=== PATIENT | male | born 1955 | race Caucasian/White ===

== ENCOUNTER 2021-03-12 21:14 | Emergency (ER) | payer MEDICARE ==
[2021-03-12] MEDS ORDERED: ACETAMINOPHEN TAB 500 MG TAB PO STA (23:24)
[2021-03-12] MEDS ORDERED: IBUPROFEN 800 MG TAB PO STA (23:24)
[2021-03-12] MEDS ORDERED: amLODIPine 10 MG TAB PO STA (23:33)
[2021-03-12] MEDS ORDERED: LOSARTAN 25 MG TAB PO STA (23:33)
[2021-03-13] MEDS ORDERED: CASIRIVIMAB (REGN10933) (EUA) 600 MG, IMDEVIMAB (REGN10987) (EUA) 600 MG in SODIUM CHLO... IVPB ONE ×3
[2021-03-13] MEDS ORDERED: SODIUM CHLORIDE 0.9% 50 ML IVPB ONE
--- NOTE | 2021-03-13 00:03 | ED ---
General Adult HPI - General Chief complaint: Upper Respiratory Infection Stated complaint: wants bam infusion Time Seen by Provider: 03/12/21 23:18 Source: patient, RN notes reviewed, old records reviewed Mode of arrival: ambulatory Limitations: no limitations - History of Present Illness Initial comments: Patient is a 65-year-old male with past medical history remarkable for hypertension presents emergency Department complaining of COVID-19 symptoms. He is seeking monoclonal antibodies. States symptoms started approximately a few days ago, 3 or 4. States he is having upper respiratory congestion, mild cough, and primarily fatigue. Denies any shortness of breath, chest pain, nausea, vomiting, diarrhea. Has no other acute complaints at this time. States he has been without his home blood pressure medication amlodipine 10 mg and also did not take his evening losartan dose. We set as well as blood pressures high in triage. We will provide him with doses here in the department at his request. He otherwise denies any acute complaints at this time. He would like medical antibodies therapy. Patient states he was not vaccinated for COVID-19. Previously had Covid back in the fall. - Related Data Previous Rx's Medication Instructions Recorded Albuterol Inhaler [Ventolin Hfa 1 puff INHALATION RT-QID #8 gm 03/13/21 Inhaler] amLODIPine [Norvasc] 10 mg PO DAILY 14 Days #14 tablet 03/13/21 Allergies Allergy/AdvReac Type Severity Reaction Status Date / Time No Known Allergies Allergy Verified 03/12/21 22:08 Review of Systems ROS Statement: Those systems with pertinent positive or pertinent negative responses have been documented in the HPI. Review of Systems: CONST: Denies fever EYES: Denies blurry vision ENT: Endorses nasal congestion C/V: Denies Chest pain RESP: Denies shortness of breath GI: Denies abdominal pain : Denies dysuria SKIN: Denies rash. MSK: Denies joint pain. NEURO: Denies headache ROS Other: All systems not noted in ROS Statement are negative. Past Medical History Past Medical History: Hypertension History of Any Multi-Drug Resistant Organisms: None Reported Additional Past Surgical History / Comment(s): neck surgery x 2 Past Psychological History: No Psychological Hx Reported Smoking Status: Current every day smoker Past Alcohol Use History: Occasional Past Drug Use History: None Reported General Exam - General Exam Comments Initial Comments: General: Appears in no acute distress. Patient is febrile. HEAD: Normal with no signs of head trauma. EYES: PERRLA, EOMI, conjunctiva normal, no discharge. ENT: Hearing grossly intact, normal oropharynx. RESPIRATORY: Clear breath sounds bilaterally. No wheezes, rales, or rhonchi. Not hypoxic. No increased work of breathing. C/V: Regular rate and rhythm. S1 and S2 auscultated, no edema, peripheral pulses 2+ and intact throughout ABD: Abd is soft, nontender, nondistended EXT: Normal range of motion, no obvious deformity SKIN: No rashes or lesions observed on exposed skin. NEURO: Alert and oriented 4. Limitations: no limitations Course Vital Signs 03/12/21 22:04 Temperature 100.8 F H Pulse Rate 91 Respiratory 20 Rate Blood Pressure 206/96 O2 Sat by Pulse 95 Oximetry Medical Decision Making - Medical Decision Making Based on the patient's presentation and physical exam, I'm concerned for COVID- 19 pneumonia. Swab was obtained in triage. I evaluated the patient and he was placed in a room. Patient is hypertensive but otherwise asymptomatic. He did not take his evening medications we'll provide him with them. He was in agreement this plan. He also meets criteria for monoclonal antibody therapy which she will be provided with. She otherwise has no acute complaints at this time. I do not believe that he requires any laboratory studies or imaging further as he is not hypoxic and is not in respiratory distress. He was in agreement this plan. He did discuss quarantine. I'll provide him with a prescription for his amlodipine as well as albuterol upon discharge. Patient tolerated therapy well. He will be discharged. I recommended that he follow up with PCP for further antihypertensives. I will provide the patient with a prescription for albuterol, amlodipine 10 mg daily for 2 weeks. I instructed the patient to follow up with their PCP in the next 3 days. I explained that the patient should return to the emergency department if they experience any worsening symptoms. Strict return precautions were discussed with the patient. The patient expressed understanding of these instructions. I answered all questions that the patient had. The patient was discharged home in good condition with their prescriptions and follow up information. - Lab Data Lab Results 03/12/21 Range/Units 22:10 Coronavirus (PCR) Detected A (Not Detectd) Disposition Clinical Impression: COVID-19 virus infection, Uncontrolled hypertension, Febrile illness Disposition: HOME SELF-CARE Condition: Good Instructions (If sedation given, give patient instructions): Coronavirus Disease 2019 (COVID-19) Prescriptions: amLODIPine [Norvasc] 10 mg PO DAILY 14 Days #14 tablet Albuterol Inhaler [Ventolin Hfa Inhaler] 1 puff INHALATION RT-QID #8 gm Is patient prescribed a controlled substance at d/c from ED?: No Referrals: Nonstaff,Physician [Primary Care Provider] - 1-2 days Mckenna Cruz MD [STAFF PHYSICIAN] - 1-2 days
[2021-03-13 01:17] VITALS: BP 179/92; PULSE 72; RESP 18; TEMP 98.7
== END 2021-03-13 01:39 | disposition home or self-care (01) ==
LOC: EC 21:14
DX: U07.1 COVID-19 (principal); I10 Essential (primary) hypertension; F17.200 Nicotine dependence, unspecified, uncomplicated
CPT/HCPCS: 99284; 87635; Q0244